=== PATIENT | female | born 1950 | race Caucasian/White ===

== ENCOUNTER 2018-05-03 07:53 | Day surgery (SDC) | payer BC ==
[2018-05-02 11:56] VITALS: BMI 40.7
--- NOTE | 2018-05-03 00:12 | HP ---
HISTORY OF PRESENT ILLNESS: Ms. Taniya Santana is a 67-year-old, comes for colonoscopy for colon cancer screening. The patient has no specific GI symptoms. . There is no family history of colon cancer. The patient also has history of chronic acid reflux over the years, although she is understanding because longstanding acid reflux, the patient does not have a EGD at the present time. ALLERGIES: LANSOPRAZOLE and other PPIs SOCIAL HISTORY: The patient is a former smoker. Does not drink alcohol. MEDICAL ILLNESSES: 1. Hypertension. 2. Obesity. 3. Chronic acid reflux. 4. Hypothyroidism. 5. Hyperlipidemia. 6. Hysterectomy. 7. Cataract surgery. 8. Cholecystectomy. 9. Skin cancer removal. PHYSICAL EXAMINATION: VITAL SIGNS: Pulse is 70, blood pressure 140/80. HEENT: Conjunctivae clear. CARDIOVASCULAR: First and second heart sounds normal. LUNGS: Clear to auscultation. ABDOMEN: Soft to palpate. No organomegaly. No tenderness. No masses. ADMITTING DIAGNOSIS: A 67-year-old female comes for a colonoscopy for colon cancer screening. [facility]
[2018-05-03] MEDS ORDERED: PHENYLEPHRINE-NS 100 MCG/ML 10 ML SYRINGE ONE (11:28)
[2018-05-03] MEDS ORDERED: PROPOFOL 200 MG/20 ML VIAL ONE (11:28)
--- NOTE | 2018-05-03 13:06 | OP ---
DATE OF PROCEDURE 05/03/2018 SURGEON: Riaz Arango M.D. OPERATIVE PROCEDURE: Colonoscopy with biopsy. PREOPERATIVE DIAGNOSIS: A 67-year-old female undergoing colonoscopy for colon cancer too chacko. POSTOPERATIVE DIAGNOSES: 1. Rectal polyp. 2. Hemorrhoids. 3. Tortuous sigmoid colon. PROCEDURE NOTE: The patient was placed on her left lateral position and was given sedation by Anesth esia Department. A rectal exam was done. The scope was advanced into the rectum. No lesion felt on rectal exam. A [employer] video colonoscope was introduced into the rectum and without difficulty. The prep was excellent. The mucosa appears normal throughout the colon with normal vascular pattern. Th e appendical orifice, ileocecal valve, cecum, no pathology seen. Withdrawal of scope in the cecum, a scending colon, hepatic flexure, no pathology seen. The transverse colon, splenic flexure, and desce nding colon, no pathology seen. The sigmoid colon does show a few diverticula. She has small sessil e rectal polyp removed with biopsy forceps. Rectum shows hemorrhoids also. DISCHARGE PLANNING: This is a 67-year-old female who came for a colonoscopy for colon [facility] er screening. She had a colonoscopy with removal of a small sessile sigmoid rectal polyp. DISCHARGE RECOMMENDATIONS: 1. The patient advised to call me if she develops abdominal pain and hematochezia. 2. High-fiber diet. 3. To come back to clinic next week.
== END 2018-05-03 12:32 | disposition home or self-care (01) ==
LOC: SDC 07:53
PROVIDERS: ATTEND Internal Medicine Gastroenterology
PROC: 0DBP8ZX Excision of Rectum, Via Natural or Artificial Opening Endoscopic, Diagnostic (ICD-10-PCS; principal; 2018-05-03)
DX: Z12.11 Encounter for screening for malignant neoplasm of colon (principal); D12.8 Benign neoplasm of rectum; K57.30 Diverticulosis of large intestine without perforation or abscess without bleeding; K64.9 Unspecified hemorrhoids; K21.9 Gastro-esophageal reflux disease without esophagitis; I10 Essential (primary) hypertension; E78.5 Hyperlipidemia, unspecified; E66.9 Obesity, unspecified; Z68.41 Body mass index [BMI] 40.0-44.9, adult; Z87.891 Personal history of nicotine dependence; Z79.82 Long term (current) use of aspirin; Z79.899 Other long term (current) drug therapy; Z88.8 Allergy status to other drugs, medicaments and biological substances
CPT/HCPCS: 88305; J2704

== ENCOUNTER 2021-05-20 08:43 | Outpatient (CLI) | payer MEDICARE | END 2021-05-20 08:44 | disposition home or self-care (01) | LOC: BICMAMMO 08:43 | PROVIDERS: ATTEND Internal Medicine | DX: Z12.31 Encounter for screening mammogram for malignant neoplasm of breast (principal); Z80.3 Family history of malignant neoplasm of breast | CPT/HCPCS: 77063; 77067 ==